=== PATIENT | female | born 1975 | race Caucasian/White ===

== ENCOUNTER → 2020-08-23 17:47 | Outpatient (BNVA) | payer BC, MEDICAID, SELFPAY | PROVIDERS: Family Provider Family Medicine; PCP Family Medicine; Visit Provider Nurse Practitioner Family | DX: K52.9 Noninfective gastroenteritis and colitis, unspecified (principal) | CPT/HCPCS: 81025 ==

== ENCOUNTER → 2021-02-02 16:26 | Outpatient (BNVA) | payer BC, MEDICAID, SELFPAY | PROVIDERS: Family Provider Family Medicine; PCP Family Medicine; Visit Provider Nurse Practitioner Family | DX: Z20.822 Contact with and (suspected) exposure to COVID-19 (principal); R43.0 Anosmia; J06.9 Acute upper respiratory infection, unspecified; Z20.828 Contact with and (suspected) exposure to other viral communicable diseases | CPT/HCPCS: 87635 ==

== ENCOUNTER 2021-08-16 11:58 | Inpatient (IN) | payer BC, MEDICAID, SELFPAY ==
--- NOTE | 2021-08-16 12:08 | ED_ITS ---
HPI - General Adult General: Chief complaint: Psychiatric Symptoms Stated complaint: EVAL 96 HR HOLD Time Seen by Provider: 08/16/21 12:00 History of Present Illness: HPI: [46]yo patient w/ hx of recent covid diagnosis c/b significant memory loss per patient BIBA for inability to take care of self, concern for suicidal ideation per affadivit. Patient denies having any recollection of the events. On arrival, the patient is AAOx3 and cooperative with my evaluation. No focal complaints of chest pain, shortness of breath, palpitations, N/V, focal GI/ complaints. Currently denies SI/HI. No complaints of hallucinations. Onset: unknown Duration: ongoing Location: home Severity: severe Associated symptoms: Deny chest pain, dyspnea, nausea, rash, palpitations or vomiting Review of Systems Const: Denies: fever(s) or chills Eyes: Denies: change in vision ENMT: Denies: mouth pain Card: Denies: chest pain or palpitations Resp: Denies: dyspnea or non-productive cough GI: Denies: abdominal pain, nausea, vomiting or diarrhea : Denies: dysuria Musc: Denies: extremity pain Skin/Breast: Denies: rash or new lesions Neuro: Denies: weakness in extremities Psych: Reports: other (Normal mood) Gera/Lymph: Denies: easy bruising PFS ED PFSH: Medical History (Updated 08/16/21 @ 12:12 by Mateo Hutton MD) COVID (~08/16/21) Social History (Updated 08/16/21 @ 12:11 by Mateo Hutton MD) Smoking and tobacco status: current every day smoker Alcohol intake: unknown Substance/Drug Use: unknown Physical Exam Const: COMMON NORMALS: alert HENMT: COMMON NORMALS: atraumatic HEAD & SCALP: atraumatic MOUTH: moist mucous membranes not abnormal Eye: COMMON NORMALS: EOMs intact bilaterally and conjunctivae normal CONJUNCTIVA: Yes conjunctivae normal Neck/C-Spine: COMMON NORMALS: full ROM and supple Resp: COMMON NORMALS: normal respiratory effort and clear to auscultation bilaterally AUSCULTATION: clear to auscultation bilaterally Cardio: COMMON NORMALS: regular rate RATE: regular rate GI: COMMON NORMALS: Soft to palpation and non-tender PALPATION: Yes Soft to palpation Extremity: COMMON NORMALS: full ROM Neuro: SENSORIUM/ORIENTATION: Yes alert MOTOR EXAM: No Abnormal motor st rength present and Other motor observations present (no focal motor deficits) Psych: COMMON NORMALS: speech normal SPEECH: Yes normal speech MOOD & AFFECT: Yes euthymic mood Course Vital Signs: Vital signs: Vital Signs Temperature 98.2 F 08/16/21 12:40 Pulse Rate 89 08/16/21 12:40 Respiratory Rate 18 08/16/21 12:40 Blood Pressure 169/78 08/16/21 12:40 Pulse Oximetry 99 08/16/21 12:40 MDM - General Adult Medical Decision Making [46]yo patient w/ hx of recent covid diagnosis presenting for depression and inability to take care of self under an affadivit. HDS, exam within normal limit Thoughts are linear and organized, and the patient has no AH/VH, or HI. Clinically the patient displays no overt toxidrome; they are well appearing, with low suspicion for toxic ingestion given history and exam. Symptoms unlikely 2/2 anemia, hypothyroidism, infection, or ICH. Workup: CBC, CMP, Lipase, salicylate/tylenol, urine drug screen Lab findings: wnl [1:05pm] On reassessment, labs and workup wnl. Patient is hemodynamically stable with no acute medical complaints. Case discussed with psychiatric provider Dr. tSephenson at [facility] psych inpatient with recommendation for admission Disposition: Psych Lab Data : 08/16/21 12:23 08/16/21 12:23 Laboratory Results WBC 9.4 10^3/uL (4.0-10.0) 08/16/21 12: RBC 3.80 10^6/uL (4.1-5.3) L 08/16/21 12:23 Hgb 12.2 g/dL (11.5-15.3) 08/16/21 12:23 Hct 36.8 % (37.0-47.0) L 08/16/21 12:23 MCV 96.8 fl (81-99) 08/16/21 12:23 MCH 32.1 pg (28.0-34.0) 08/16/21 12: MCHC 33.2 g/dL (30.0-36.0) 08/16/21 12: RDW 12.8 % (12.1-15.1) 08/16/21 12:23 Plt Count 296 10^3/cmm (130-400) 08/16/21 12:23 MPV 8.8 fL (7.4-10.4) 08/16/21 12:23 Neut % (Auto) 63.5 % 08/16/21 12: Lymph % (Auto) 24.9 % 08/16/21 12:23 [place] % (Auto) 9.7 % 08/16/21 12:23 Eos % (Auto) 0.5 % 08/16/21 12:23 Baso % (Auto) 1.1 % 08/16/21 12:23 Neut # (Auto) 5.99 10^3/uL (1.8-7.7) 08/16/21 12: Lymph # (Auto) 2.4 10^3/uL (0.8-4.8) 08/16/21 12:23 [place] # (Auto) 0.9 10^3/uL (0.2-0.9) 08/16/21 12:23 Eos # (Auto) 0.1 10^3/uL (0.0-0.8) 08/16/21 12:23 Baso # (Auto) 0.1 10^3/uL (0.0-0.1) 08/16/21 12: Nucleated RBC % (auto) 0 % 08/16/21 12: Nucleated RBCs # 0.0 /100WBC 08/16/21 12:23 Sodium 136 mmol/L (136-145) 08/16/21 12:23 Potassium 3.5 mmol/L (3.5-5.1) 08/16/21 12:23 Chloride 100 mmol/L (98-107) 08/16/21 12:23 Carbon Dioxide 25 mmol/L (22-29) 08/16/21 12:23 Anion Gap 14.5 (5-19) 08/16/21 12:23 BUN 7 mg/dL (6-20) 08/16/21 12:23 Creatinine 0.6 mg/dL (0.5-0.9) 08/16/21 12:23 GFR Calculation 106.7 mL/min (90-130) 08/16/21 12:23 Glucose 92 mg/dL (65-115) 08/16/21 12:23 Calculated Osmolality 280 mOsm/kg (285-295) L 08/16/21 12:23 Calcium 8.8 mg/dL (8.5-10.5) 08/16/21 12:23 Total Bilirubin 0.2 mg/dL (0.15-1.2) 08/16/21 12:23 AST 14 U/L (0-32) 08/16/21 12:23 ALT 15 U/L (0-33) 08/16/21 12:23 Alkaline Phosphatase 59 IU/L (35-105) 08/16/21 12:23 Total Protein 6.6 g/dL (6.6-8.7) 08/16/21 12:23 Albumin 4.1 g/dL (3.5-5.2) 08/16/21 12: Globulin 2.5 g/dL (1.3-4.6) 08/16/21 12: Lipase 17 U/L (13-60) 08/16/21 12:23 HCG, Qual Negative (Negative) 08/16/21 12:23 Salicylates < 0.3 mg/dL (3-10) L 08/16/21 12:23 Urine Opiates Screen Negative ng/mL (Negative) 08/16/21 12:30 Acetaminophen < 5.0 ug/mL (10-30) L 08/16/21 12:23 Ur Barbiturates Screen Negative ng/mL (Negative) 08/16/21 12:30 Ur Phencyclidine Scrn Negative ng/mL (Negative) 08/16/21 12:30 Ur Amphetamines Screen Negative ng/mL (Negative) 08/16/21 12:30 U Benzodiazepines Scrn Negative ng/mL (Negative) 08/16/21 12:30 Urine Cocaine Screen Negative ng/mL (Negative) 08/16/21 12:30 U Marijuana (THC) Screen Negative ng/mL (Negative) 08/16/21 12:30 Discharge Plan Discharge Patient Disposition: Admitted As Inpatient Clinical Impression: Depression, Unable to care for self Coding Level of Care Code ED [employer] 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
[2021-08-16 12:40] VITALS: BP 169/78; PULSE 89; RESP 18; TEMP 36.8; O2SAT 99; BMI 30.7
[2021-08-16 12:43] LABS: Basophils # 0.1 10^3/uL (0.0-0.1); Basophils % 1.1 %; Eosinophils # 0.1 10^3/uL (0.0-0.8); Eosinophils % 0.5 %; Hematocrit 36.8 % (37.0-47.0); Hemoglobin 12.2 g/dL (11.5-15.3); Lymphocytes # 2.4 10^3/uL (0.8-4.8); Lymphocytes % 24.9 %; Mean Corpuscular HGB Conc 33.2 g/dL (30.0-36.0); Mean Corpuscular Hemoglobin 32.1 pg (28.0-34.0); Mean Corpuscular Volume 96.8 fl (81-99); Mean Platelet Volume 8.8 fL (7.4-10.4); Monocytes # 0.9 10^3/uL (0.2-0.9); Monocytes % 9.7 %; Neutrophils # 5.99 10^3/uL (1.8-7.7); Neutrophils % 63.5 %; Nucleated Red Blood Cells % 0 %; Platelet Count 296 10^3/cmm (130-400); Red Cell Distribution Width 12.8 % (12.1-15.1); White Blood Count 9.4 10^3/uL (4.0-10.0)
[2021-08-16 12:57] LABS: Amphetamines Screen Urine Negative (Negative); Barbiturates Screen Urine Negative (Negative); Benzodiazepines Screen Urine Negative (Negative); Cocaine Screen Urine Negative (Negative); Opiate Screen Urine Negative (Negative); PCP Screen Urine Negative (Negative); THC Screen Urine Negative (Negative)
[2021-08-16 13:06] LABS: Alanine Aminotransferase 15 U/L (0-33); Albumin Level 4.1 g/dL (3.5-5.2); Alkaline Phosphatase 59 IU/L (35-105); Anion Gap 14.5 (5-19); Aspartate Amino Transferase 14 U/L (0-32); Blood Urea Nitrogen 7 mg/dL (6-20); Calcium 8.8 mg/dL (8.5-10.5); Carbon Dioxide 25 mmol/L (22-29); Chloride 100 mmol/L (98-107); Globulin 2.5 g/dL (1.3-4.6); Glomerular Filtration Rate 106.7 mL/min (90-130); Glucose 92 mg/dL (65-115); Lipase 17 U/L (13-60); Osmolality Calculated 280 mOsm/kg (285-295); Potassium 3.5 mmol/L (3.5-5.1); Sodium 136 mmol/L (136-145); Total Bilirubin 0.2 mg/dL (0.15-1.2); Total Protein 6.6 g/dL (6.6-8.7)
[2021-08-16 13:10] LABS: Acetaminophen < 5.0 ug/mL (10-30); Salicylate < 0.3 mg/dL (3-10)
[2021-08-16 13:17] LABS: HCG, Serum Qual Negative (Negative)
[2021-08-16 17:33] VITALS: BP 143/98; PULSE 91; RESP 18; TEMP 36.7; O2SAT 100
[2021-08-16] MEDS: nicotine 2 mg Gum BUCCAL ×2 (18:23→20:34)
[2021-08-16] MEDS: trazodone 100 mg Tablet PO (20:34)
[2021-08-16 21:58] VITALS: BP 133/88; PULSE 90; RESP 18; O2SAT 98
[2021-08-17] MEDS: nicotine 2 mg Gum BUCCAL ×6 (05:40→21:27)
[2021-08-17 06:00] VITALS: BP 99/66; PULSE 82; RESP 17; TEMP 36.7; O2SAT 99
[2021-08-17] MEDS: blistex lip oint 7 gm Tube 1 APPLIC TOPICAL (08:57)
[2021-08-17] MEDS: BuSPIRONE 10 mg Tablet 20 MG PO ×2 (08:57→18:41)
[2021-08-17] MEDS: montelukast sodium 10 mg Tablet PO (08:58)
[2021-08-17] MEDS: buPROPion XL (24 HR) 300 mg Tablet PO (08:58)
[2021-08-17] MEDS: acetaminophen 325 mg Tablet 650 MG PO (08:58)
--- NOTE | 2021-08-17 10:55 | W.PM.NPUH&PS ---
Providers/Chief Complaint Admitting Physician: Rohit Stephenson MD Primary Care Provider: Flory Fierro DO Chief Complaint: EVAL 96 HR HOLD HPI NPU History of Present Illness Karlene Carlisle is a 46 year old female who presented to the ED with the following report: Chief complaint: Psychiatric Symptoms Stated complaint: EVAL 96 HR HOLD Time Seen by Provider: 08/16/21 12:00 History of Present Illness:?? HPI: [46]yo patient w/ hx of recent covid diagnosis c/b significant memory loss per patient BIBA for inability to take care of self, concern for suicidal ideation per affadivit. Patient denies having any recollection of the events. On arrival, the patient is AAOx3 and cooperative with my evaluation. No focal complaints of chest pain, shortness of breath, palpitations, N/V, focal GI/ complaints. Currently denies SI/HI. No complaints of hallucinations. Onset: unknown Duration: ongoing Location: home Severity: severe Associated symptoms: Deny chest pain, dyspnea, nausea, rash, palpitations or vomiting She was admitted to the neuropsychiatric unit for definitive treatment of those issues. She presents today reporting that she has no recollection of the circumstances that have led to her to being in the hospital at this point. She denies that the history that I reviewed from her chart going back to 2020 with the adult protective caseworker is her. The adult protective caseworker Eric Madrid who had been working with her for much of last year she denies knowing. She denies my reflection of what led to the 96 hour hold reporting that she was at her home and the police came and said they had this hold for her which she reports is confusing. She reports that she did have Covid in January and has had some significant memory issues but she denies having mental health concerns that lead to treatment as is described. She reports she works at [employer], [employer] and has not had any difficulties that would lead to her needing to be hospitalized. We agreed we would do some significant research into the situation prior to proceeding. Will address additional history after we are clear there isn't an error. Meds NPU Home Medications Medication Instructions Recorded Confirmed Last Taken Type brexpiprazole 2 mg tablet (Rexulti) 2 mg PO DAILY 08/16/21 08/16/21 08/16/21 History bupropion HCl 300 mg 24 hr tablet, 300 mg PO QAM 08/16/21 08/16/21 Unknown History extended release buspirone 10 mg tablet 20 mg PO BID 08/16/21 08/16/21 Unknown History montelukast 10 mg tablet 10 mg PO QAM 08/16/21 08/16/21 08/16/21 History trazodone 50 mg tablet 100 mg PO BEDTIME 08/16/21 08/16/21 Unknown History Allergies Allergy/AdvReac Type Severity Reaction Status Date / Time No Known Allergies Allergy Verified 08/16/21 13:09 PFSH NPU PFSH: Medical History (Updated 08/17/21 @ 12:58 by Rohit Stephenson MD) COVID (~08/16/21) Social History (Updated 08/16/21 @ 12:11 by Mateo Hutton MD) Smoking and tobacco status: current every day smoker Alcohol intake: unknown Substance/Drug Use: unknown Mental Status Exam MSE Comments: This is an obese white female with appropriate dress, grooming and eye contact. No abnormal movements. Cooperative with exam in no acute distress. Speech was normal rate and volume. Mood described is pretty good, affect congruent. Thought process organized. Thought content: patient denies suicidal or homicidal ideation, there were no delusions reported or noted, she denied auditory or visual hallucinations. Attention and concentration were intact and memory appeared reliable but none were formally tested. She?s alert and oriented times three. Insight and judgment appeared fair. Vitals/I&O/Wt Last Vital Signs Temp 98.1 F 08/16/21 17:33 Pulse 90 08/16/21 21:58 Resp 18 08/16/21 21:58 BP 133/88 08/16/21 21:58 Pulse Ox 98 08/16/21 21:58 Weight last 48 hrs Weight 91.626 kg Data NPU : 08/16/21 12:23 08/16/21 12:23 A&P Assessment and plan (1) Depression: Status: Acute (2) Unable to care for self: Status: Acute (3) Involuntary commitment: Status: Acute Plan This is a 46-year-old white female who presents on a 96 hour hold denying that she?s the individual of record reporting that she does not have the history with our [facility] as described in her chart prior to a week ago. We agreed to do some further investigation to determine if her memory is the problem or there has been some mistake. 1. Continue current medication. 2. Continue every 15 minute checks for safety. 3. Encourage individual, group and milieu therapies. 4. Encourage sober living treatment after discharge at the highest level of care to which he is willing to commit. 5. We are exploring collateral information to determine if she is the individual police had expressed concerns about. Involuntary Hold Information 96 Hour Hold: 96 Hour Involuntary Admission: Yes 96 Hour Hold Ending Date: 08/20/21 96 Hour Hold Ending Time: 12:00 Attestations NPU Medical Necessity Statement*: Inpatient hospitalization is medically necessary and the clinically appropriate intervention at this time. We will monitor medication to make changes as indicated. Patient will be in the hospital for over two midnights. Likely length of stay 3 to 5 days. Coding Level of Care Code Acute Professor Of Oceanography for [facility] Diagnoses Depression F32.A Unable to care for self Z78.9 Involuntary commitment Z04.6
--- NOTE | 2021-08-17 13:01 | NPU.GN ---
[facility]Psych Unit Group Topic: Triggers, Coping Skills, Crisis Intervention Plan General Mood of Group: Karlene attended and participated in group today. She was social with all in group. Hygiene is good. She was aided with the sports writer to complete the [facility] new patient paperwork. While completing her paperwork Karlene seems very emotional and gets upset and cries easily. She is working on getting a guardian.
[2021-08-17 13:30] VITALS: BP 160/103; PULSE 105; RESP 17; TEMP 36.7; O2SAT 98
[2021-08-17 21:14] VITALS: BP 114/79; PULSE 92; RESP 16; TEMP 36.6; O2SAT 98
[2021-08-17] MEDS: trazodone 100 mg Tablet PO (21:27)
[2021-08-18 06:00] VITALS: BP 91/53; PULSE 72; RESP 20; TEMP 36.8; O2SAT 98
[2021-08-18] MEDS: acetaminophen 325 mg Tablet 650 MG PO ×2 (06:53→21:17)
[2021-08-18] MEDS: nicotine 2 mg Gum BUCCAL ×7 (06:58→21:19)
[2021-08-18] MEDS: buPROPion XL (24 HR) 300 mg Tablet PO (09:41)
[2021-08-18] MEDS: BREXPIPRAZOLE 2 MG 2 EACH PO (09:41)
[2021-08-18] MEDS: BuSPIRONE 10 mg Tablet 20 MG PO ×2 (09:42→18:44)
[2021-08-18] MEDS: montelukast sodium 10 mg Tablet PO (09:43)
[2021-08-18] MEDS: hyDROXYzine 25 mg Capsule 50 MG PO (09:46)
[2021-08-18] MEDS: OLANZapine 5 mg ODT PO ×2 (09:46→19:35)
[2021-08-18] MEDS: neomycin-poly-bacitracin oint 0.9 gm Pkt 1 APPLIC TOPICAL (12:49)
[2021-08-18 14:00] VITALS: BP 99/60; PULSE 83; RESP 18; TEMP 36.8; O2SAT 98
--- NOTE | 2021-08-18 16:23 | W.PM.NPUPNS ---
Subjective NPU Subjective: Interval history: Patient presents today continuing to have full focus on discharge today. We discussed her history with [facility] which includes a fairly thorough note from August 2005 and she chronicles history that does include depression suicidal thinking of suicide attempts. We discussed how her either intentional or accidental omission of documented history [place] to not have concerns about discharge. We agreed to work with the treatment team to connect with her significant other and consider discharge in the next 48 hours as she is consistently denied psychosis and/or lethality. Mental Status Exam MSE Comments: This is an obese white female with appropriate dress, grooming and eye contact. No abnormal movements. Cooperative with exam in mild distress about being discharged and being on a 96-hour hold and not needing the interventions suggested. Speech was normal rate and volume. Mood described is pretty good, affect congruent. Thought process organized. Thought content: patient denies suicidal or homicidal ideation, there were no delusions reported or noted, she denied auditory or visual hallucinations. Attention and concentration were intact and memory appeared reliable but none were formally tested. She?s alert and oriented times three. Insight and judgment appeared fair. Vitals/I&O/Wt Last Vital Signs Temp 98.2 F 08/18/21 14:00 Pulse 83 08/18/21 14:00 Resp 18 08/18/21 14:00 BP 99/60 08/18/21 14:00 Pulse Ox 98 08/18/21 14:00 Data NPU : 08/16/21 12:23 08/16/21 12:23 A&P Assessment and plan (1) Depression: Status: Acute (2) Involuntary commitment: Status: Acute Plan This is a 46-year-old white female who presents on a 96 hour hold denying that she?s the individual of record reporting that she does not have the history with our [facility] as described in her chart prior to a week ago. We agreed to do some further investigation to determine if her memory is the problem or there has been some mistake. 1.? Continue current medication. 2.? Continue every 15 minute checks for safety. 3.? Encourage individual, group and milieu therapies. 4.? Encourage sober living treatment after discharge at the highest level of care to which he is willing to commit. 5. There is no confusion as to whether she is to is identified in the 90 total discussions of whether or not she is an actual safety concern. Likely discharge in the next 48 hours. Involuntary Hold Information 96 Hour Hold: 96 Hour Involuntary Admission: Yes 96 Hour Hold Ending Date: 08/20/21 96 Hour Hold Ending Time: 12:00 Attestations NPU Medical Necessity Statement*: Inpatient hospitalization is medically necessary and the clinically appropriate intervention at this time. We will monitor medication to make changes as indicated. Likely length of stay 1-3 days. Coding Level of Care Code Acute Music Education Director for [facility] Fwd Diagnoses Depression F32.A Involuntary commitment Z04.6
[2021-08-18] MEDS: trazodone 100 mg Tablet PO (21:18)
[2021-08-18 22:00] VITALS: BP 97/63; PULSE 87; RESP 16; TEMP 36.6; O2SAT 97
--- NOTE | 2021-08-19 02:17 | PC.NURSE ---
1934 Zyprexa given for extreme anxiety. 2116 Tylenol 650mg given for a headache. Both medications were effective. Patient is resting quietly.
[2021-08-19] MEDS: nicotine 2 mg Gum BUCCAL ×6 (04:39→17:03)
[2021-08-19] MEDS: acetaminophen 325 mg Tablet 650 MG PO (04:39)
--- NOTE | 2021-08-19 05:35 | PC.NURSE ---
0439 Patient requested Tylenol for a headache rating it a 4 on a scale of 1-10. Tylenol 650mg po given. Med effective as the patient is asleep.
[2021-08-19 06:00] VITALS: BP 99/63; PULSE 80; RESP 18; TEMP 36.6; O2SAT 98
[2021-08-19] MEDS: BREXPIPRAZOLE 2 MG 2 EACH PO (08:53)
[2021-08-19] MEDS: BuSPIRONE 10 mg Tablet 20 MG PO ×2 (08:55→17:49)
[2021-08-19] MEDS: neomycin-poly-bacitracin oint 0.9 gm Pkt 1 APPLIC TOPICAL ×2 (08:56→17:49)
[2021-08-19] MEDS: buPROPion XL (24 HR) 300 mg Tablet PO (08:56)
[2021-08-19] MEDS: montelukast sodium 10 mg Tablet PO (08:56)
[2021-08-19] MEDS: OLANZapine 5 mg ODT PO (11:07)
[2021-08-19] MEDS: hyDROXYzine 25 mg Capsule 50 MG PO (11:09)
[2021-08-19 14:00] VITALS: BP 123/88; PULSE 97; RESP 17; TEMP 37.3; O2SAT 98
--- NOTE | 2021-08-19 14:55 | W.PM.NPUDCS ---
Diagnoses at Discharge Discharge Diagnosis (1) Depression: Status: Acute (2) Involuntary commitment: Status: Resolved Reason for Visit Reason for Visit: EVAL 96 HR HOLD Brief History: History of Present Illness Karlene Carlisle is a 46 year old female who presented to the ED with the following report: Chief complaint: P sychiatric Symptom s Stated complaint : EVAL 96 HR HOLD Time Seen by Antonio héctor: 08/16/21 12:0 0? ? History of Present Illness:??? HPI: [46]yo patien t w/ hx of recent covid diagnosis c/ b significant joe ry loss per patien t BIBA for inabili ty to take care of self, concern for suicidal ideation per affadivit. Pavan sheldon denies fan g any recollection of the events. On arrival, the hilton ent is AAOx3 and c ooperative with my evaluation. No fo gennaro complaints of chest pain, shortn ess of breath, pal pitations, N/V, fo gennaro GI/ complain ts. Currently noreen es SI/HI. No compl aints of hallucina tions. Onset: unkn own Duration: ongo ing Location: home Severity: severe Associated symptom s: Deny chest pain , dyspnea, nausea, rash, palpitation s or vomiting She was admitted to the neuropsychiatric unit for definitive treatment of those issues. She presents today reporting that she has no recollection of the circumstances that have led to her to being in the hospital at this point. She denies that the history that I reviewed from her chart going back to 2020 with the case management assistant is her. The case management assistant Eric Madrid who had been working with her for much of last year she denies knowing. She denies my reflection of what led to the 96 hour hold reporting that she was at her home and the police came and said they had this hold for her which she reports is confusing. She reports that she did have Covid in January and has had some significant memory issues but she denies having mental health concerns that lead to treatment as is described. She reports she works at [employer] and has not had any difficulties that would lead to her needing to be hospitalized. We agreed we would do some significant research into the situation prior to proceeding. Will address additional history after we are clear there isn't an error. Hospital Course Hospital Course She slowly acclimated to the individual, group and milieu therapies provided. She initially was not enigma as she denied any issues or history of any issues. There was likely some conflict with her daughter that led to the 96-hour hold that brought her to the hospital. However review of her records revealed that she has had psychiatric challenges in her past and she is a less effective than she believes she is in remembering dates historically in her life. Due to concerns raised by mother and daughter we did monitor her but she demonstrated no signs of acute lethality though her insight seemed skewed and she related this to recent Covid infection affecting her memory but at times she seemed like she could be hypomanic. She showed modest improvement and was able to contract for safety outside the hospital prior to discharge. During the hospitalization, patient had routine laboratory studies which were within normal limits except for few outliers. Additionally there was a general medical evaluation which was also within normal limits and revealed no new acute processes. Discharge Summary: At the time of discharge, she denied psychosis or lethality. Mood and anxiety were well managed. Patient endorsed a plan to avoid all drugs of abuse and follow-up with the aftercare recommendations of the treatment team. Patient was evaluated and deemed to be absent credible lethality, and and therefore did not need to be held longer on a 96-hour hold, so was discharged, though if she was interested in treatment she could benefit from interventions. Involuntary Hold Information 96 Hour Hold: 96 Hour Involuntary Admission: Yes 96 Hour Hold Ending Date: 08/20/21 96 Hour Hold Ending Time: 12:00 Mental Status Exam MSE Comments: This is an obese white female with appropriate dress, grooming and eye contact. No abnormal movements. Cooperative with exam in mild distress about being discharged and being on a 96-hour hold and not needing the interventions suggested.? Speech was normal rate and volume, but somewhat pressured. Mood described is pretty good, affect congruent. Thought process organized. Thought content: patient denies suicidal or homicidal ideation, there were no delusions reported or noted, she denied auditory or visual hallucinations. Attention and concentration were intact and memory appeared reliable but none were formally tested. She?s alert and oriented times three. Insight and judgment appeared fair. Discharge Data Studies Completed and Pending: Laboratory Results WBC 9.4 10^3/uL (4.0- 10.0) 08/16/21 12:23 RBC 3.80 10^6/uL (4.1 -5.3) L 08/16/21 12:23 Hgb 12.2 g/dL (11.5-1 5.3) 08/16/21 12:23 Hct 36.8 % (37.0-47.0 ) L 08/16/21 12:23 MCV 96.8 fl (81-99) 08/16/21 12:23 MCH 32.1 pg (28.0-34. 0) 08/16/21 12: MCHC 33.2 g/dL (30.0-3 6.0) 08/16/21 12:23 RDW 12.8 % (12.1-15.1 ) 08/16/21 12:23 Plt Count 296 10^3/cmm (130 -400) 08/16/21 12: MPV 8.8 fL (7.4-10.4) 08/16/21 12:23 Neut % (Auto) 63.5 % 08/16/21 12:23 Lymph % (Auto) 24.9 % 08/16/21 12:23 [place] % (Auto) 9.7 % 08/16/21 12:23 Eos % (Auto) 0.5 % 08/16/21 12:23 Baso % (Auto) 1.1 % 08/16/21 12:23 Neut # (Auto) 5.99 10^3/uL (1.8 -7.7) 08/16/21 12:23 Lymph # (Auto) 2.4 10^3/uL (0.8- 4.8) 08/16/21 12:23 [place] # (Auto) 0.9 10^3/uL (0.2- 0.9) 08/16/21 12:23 Eos # (Auto) 0.1 10^3/uL (0.0- 0.8) 08/16/21 12:23 Baso # (Auto) 0.1 10^3/uL (0.0- 0.1) 08/16/21 12: Nucleated RBC % (a uto) 0 % 08/16/21 12: Nucleated RBCs # 0.0 /100WBC 08/16/21 12:23 Sodium 136 mmol/L (136-1 45) 08/16/21 12:23 Potassium 3.5 mmol/L (3.5-5 .1) 08/16/21 12:23 Chloride 100 mmol/L (98-10 7) 08/16/21 12:23 Carbon Dioxide 25 mmol/L (22-29) 08/16/21 12:23 Anion Gap 14.5 (5-19) 08/16/21 12:23 BUN 7 mg/dL (6-20) 08/16/21 12:23 Creatinine 0.6 mg/dL (0.5-0. 9) 08/16/21 12:23 GFR Calculation 106.7 mL/min (90- 130) 08/16/21 12:23 Glucose 92 mg/dL (65-115) 08/16/21 12:23 Calculated Osmolal ity 280 mOsm/kg (285- 295) L 08/16/21 12:23 Calcium 8.8 mg/dL (8.5-10 .5) 08/16/21 12:23 Total Bilirubin 0.2 mg/dL (0.15-1 .2) 08/16/21 12:23 AST 14 U/L (0-32) 08/16/21 12:23 ALT 15 U/L (0-33) 08/16/21 12:23 Alkaline Phosphata se 59 IU/L (35-105) 08/16/21 12:23 Total Protein 6.6 g/dL (6.6-8.7 ) 08/16/21 12:23 Albumin 4.1 g/dL (3.5-5.2 ) 08/16/21 12:23 Globulin 2.5 g/dL (1.3-4.6 ) 08/16/21 12:23 Lipase 17 U/L (13-60) 08/16/21 12:23 HCG, Qual Negative (Negati ve) 08/16/21 12:23 Salicylates < 0.3 mg/dL (3-10 ) L 08/16/21 12:23 Urine Opiates Scre en Negative ng/mL (N egative) 08/16/21 12:30 Acetaminophen < 5.0 ug/mL (10-3 0) L 08/16/21 12:23 Ur Barbiturates Sc reen Negative ng/mL (N egative) 08/16/21 12:30 Ur Phencyclidine S crn Negative ng/mL (N egative) 08/16/21 12:30 Ur Amphetamines Sc reen Negative ng/mL (N egative) 08/16/21 12:30 U Benzodiazepines Scrn Negative ng/mL (N egative) 08/16/21 12:30 Urine Cocaine Scre en Negative ng/mL (N egative) 08/16/21 12:30 U Marijuana (THC) Screen Negative ng/mL (N egative) 08/16/21 12:30 Vitals: Last Vital Signs Temp 99.2 F 08/19/21 14:00 Pulse 97 08/19/21 14:00 Resp 17 08/19/21 14:00 BP 123/88 08/19/21 14:00 Pulse Ox 98 08/19/21 14:00 Discharge Plan Discharge Patient Disposition: Home Condition: Stable Prescriptions: Continued trazodone 50 mg tablet 100 mg PO BEDTIME 0RF buspirone 10 mg tablet 20 mg PO BID 0RF montelukast 10 mg tablet 10 mg PO QAM 0RF bupropion HCl 300 mg tablet extended release 24 hr 300 mg PO QAM 0RF Rexulti 2 mg tablet 2 mg PO DAILY 0RF Discharge Orders: Discharge Order (Routine); Ordered 08/19/21 Ordered By: Rohit Stephenson Referrals: [facility] [Outside] Flory Fierro DO [Primary Care Provider] - Discharge Diet: Regular Discharge Activity: Resume usual activity Patient Instructions: Opioid Safety Discharge Attestations NPU Time Spent in Discharge Care*: less than 30 min Specific Discharge Activities: Specific discharge activities: educating patient, discussing with rn case mgr/social workers/dc planners, documenting/other paperwork and evaluating patient/reviewing data Coding Level of Care Code Acute Chg FW DC note Diagnoses Depression F32.A Involuntary commitment Z04.6
== END 2021-08-19 19:54 | disposition home or self-care (01) | DRG 881 ==
LOC: ER 12:12 → NP 17:42
PROVIDERS: Admitting Provider Psychiatry & Neurology Psychiatry; Emergency Provider Emergency Medicine; PCP Family Medicine; Visit Provider Psychiatry & Neurology Psychiatry
DX: F32.A Depression, unspecified (principal); R41.3 Other amnesia; Z86.16 Personal history of COVID-19; F17.200 Nicotine dependence, unspecified, uncomplicated; Z78.9 Other specified health status; Z04.6 Encounter for general psychiatric examination, requested by authority; Z91.51 Personal history of suicidal behavior
CPT/HCPCS: 80053; 80306; 80307; 83690; 84703; 85025; 90471; 90686; 97150; 97165; G0378

== ENCOUNTER 2021-12-01 13:12 | Outpatient (CLI) | payer BC, MEDICAID, SELFPAY ==
--- NOTE | 2021-12-01 13:56 | PFTS_ITS ---
Date of Study:12/01/21 Date of Dictation: MECHANICS: Forced vital capacity (FVC) is normal. Forced expiratory volume in one second (FEV1) is normal. FEV1/FVC is normal. FLOW VOLUME LOOP: Hesitation with a forced expiratory maneuver. LUNG VOLUMES: Not measured DIFFUSING CAPACITY FOR CARBON MONOXIDE: Normal. INTERPRETATION: The prebronchodilator spirometry is normal. Gas exchange (DLCO) is normal. MTDD
== END 2021-12-01 13:13 | disposition home or self-care (01) ==
LOC: RT 13:14
PROVIDERS: PCP Family Medicine; Visit Provider Nurse Practitioner Family
DX: R06.02 Shortness of breath (principal); F17.210 Nicotine dependence, cigarettes, uncomplicated
CPT/HCPCS: 94010; 94729

== ENCOUNTER → 2022-03-04 10:46 | Outpatient (BNVA) | payer BC, MEDICAID, SELFPAY | PROVIDERS: PCP Family Medicine; Visit Provider Registered Nurse Neonatal Intensive Care | DX: R50.9 Fever, unspecified (principal); B34.9 Viral infection, unspecified | CPT/HCPCS: 87426 ==

== ENCOUNTER 2022-03-13 01:26 | Emergency (ER) | payer BC, MEDICAID, SELFPAY ==
[2022-03-13 01:27] VITALS: BP 146/103; PULSE 97; RESP 20; TEMP 36.6; O2SAT 98; BMI 34.4
[2022-03-13 01:51] LABS: Basophils # 0.1 10^3/uL (0.0-0.1); Basophils % 1.1 %; Eosinophils # 0.2 10^3/uL (0.0-0.8); Eosinophils % 2.3 %; Hematocrit 40.7 % (37.0-47.0); Hemoglobin 13.6 g/dL (11.5-15.3); Lymphocytes # 3.2 10^3/uL (0.8-4.8); Lymphocytes % 33.5 %; Mean Corpuscular HGB Conc 33.4 g/dL (30.0-36.0); Mean Corpuscular Hemoglobin 32.1 pg (28.0-34.0); Mean Platelet Volume 9.3 fL (7.4-10.4); Monocytes # 0.8 10^3/uL (0.2-0.9); Monocytes % 8.7 %; Neutrophils # 5.18 10^3/uL (1.8-7.7); Neutrophils % 54.1 %; Nucleated Red Blood Cells % 0 %; Platelet Count 313 10^3/cmm (130-400); Red Blood Count 4.24 10^6/uL (4.1-5.3); Red Cell Distribution Width 12.9 % (12.1-15.1); White Blood Count 9.6 10^3/uL (4.0-10.0)
[2022-03-13] MEDS: midazolam 1 mg/mL INJ 2 mL 2 MG IM (01:56)
[2022-03-13] MEDS: ziprasidone 20 mg/mL SDV IM (01:56)
[2022-03-13 02:02] LABS: Alanine Aminotransferase 22 U/L (0-33); Albumin Level 4.5 g/dL (3.5-5.2); Alcohol Level 173 mg/dL (0-10); Alkaline Phosphatase 70 U/L (35-105); Anion Gap 15.8 (5-19); Aspartate Amino Transferase 13 U/L (0-32); Blood Urea Nitrogen 9 mg/dL (6-20); Carbon Dioxide 25 mmol/L (22-29); Chloride 105 mmol/L (98-107); Globulin 2.4 g/dL (1.3-4.6); Glomerular Filtration Rate 106.3 mL/min (90-130); Glucose 102 mg/dL (65-115); Osmolality Calculated 293 mOsm/kg (285-295); Potassium 3.8 mmol/L (3.5-5.1); Sodium 142 mmol/L (136-145); Total Bilirubin 0.2 mg/dL (0.15-1.2); Total Protein 6.9 g/dL (6.6-8.7)
[2022-03-13 02:05] LABS: Acetaminophen < 5.0 ug/mL (10-30); Salicylate < 0.3 mg/dL (3-10)
[2022-03-13 04:17] VITALS: PULSE 87; RESP 17
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
--- NOTE | 2022-03-13 07:17 | PC.NURSE ---
pt resting in bed, appears asleep. respirations appear even and unlabored.
--- NOTE | 2022-03-13 08:52 | PC.NURSE ---
pt awake, staff assisted pt with using a phone to call a ride
[2022-03-13 09:00] VITALS: BP 106/66; PULSE 72; TEMP 36.4; O2SAT 99
--- NOTE | 2022-03-13 09:19 | PC.NURSE ---
pt awake, ambulatory to restroom. Denies nausea or vomiting, denies SI/HI
[2022-03-13 09:27] VITALS: BP 102/73; PULSE 83; RESP 18; O2SAT 97
== END 2022-03-13 09:28 | disposition home or self-care (01) ==
PROVIDERS: Emergency Provider Emergency Medicine; PCP Family Medicine
DX: F32.A Depression, unspecified (principal); F10.129 Alcohol abuse with intoxication, unspecified; Y90.6 Blood alcohol level of 120-199 mg/100 ml; F17.210 Nicotine dependence, cigarettes, uncomplicated
CPT/HCPCS: 80053; 80307; 85025; 96372; 99285; J2250; J3486

== ENCOUNTER 2022-04-04 10:20 | Emergency (ER) | payer BC, MEDICAID, SELFPAY ==
[2022-04-04 10:47] VITALS: BP 118/81; PULSE 73; RESP 18; TEMP 36.4; O2SAT 100; BMI 32.8
[2022-04-04 13:24] LABS: Basophils # 0.1 10^3/uL (0.0-0.1); Eosinophils # 0.1 10^3/uL (0.0-0.8); Eosinophils % 1.6 %; Hematocrit 42.4 % (37.0-47.0); Hemoglobin 13.7 g/dL (11.5-15.3); Lymphocytes # 2.1 10^3/uL (0.8-4.8); Lymphocytes % 26.2 %; Mean Corpuscular HGB Conc 32.3 g/dL (30.0-36.0); Mean Corpuscular Hemoglobin 32.2 pg (28.0-34.0); Mean Corpuscular Volume 99.8 fl (81-99); Mean Platelet Volume 9.5 fL (7.4-10.4); Monocytes # 0.5 10^3/uL (0.2-0.9); Neutrophils # 5.15 10^3/uL (1.8-7.7); Neutrophils % 64.9 %; Nucleated Red Blood Cells % 0 %; Platelet Count 302 10^3/cmm (130-400); Red Blood Count 4.25 10^6/uL (4.1-5.3); Red Cell Distribution Width 13.2 % (12.1-15.1); White Blood Count 7.9 10^3/uL (4.0-10.0)
[2022-04-04 13:37] LABS: HCG, Serum Qual Negative (Negative)
[2022-04-04 13:38] LABS: Add Urine Culture? No; Add Urine Microscopic? YES; Bacteria Urine TRACE /hpf; Bilirubin Urine Neg (Negative); Blood Urine 3+ (Negative); Glucose Urine UA Norm (Normal); Ketones Urine Negative (Negative); Leukocyte Esterase Urine Negative (Negative); Nitrate Urine Negative (Negative); Protein Urine Neg (Negative); Specific Gravity, Urine 1.005 (1.005-1.030); Squamous Epithelial Cell Urine 0-4 /hpf (0-5); Urine Appearance Clear (CLEAR); Urine Color Yellow (Yellow); Urobilinogen Urine Norm (Negative); WBC Urine 0-4 /hpf (0-5); pH Urine 5 (5-7)
[2022-04-04 13:45] LABS: Alanine Aminotransferase 15 U/L (0-33); Albumin Level 4.3 g/dL (3.5-5.2); Alkaline Phosphatase 68 U/L (35-105); Anion Gap 13.2 (5-19); Aspartate Amino Transferase 14 U/L (0-32); Blood Urea Nitrogen 14 mg/dL (6-20); Carbon Dioxide 29 mmol/L (22-29); Chloride 97 mmol/L (98-107); Creatinine Clr Calc Pharmacy 134.3985; Globulin 3.2 g/dL (1.3-4.6); Glomerular Filtration Rate 106.3 mL/min (90-130); Glucose 113 mg/dL (65-115); Lipase 19 U/L (13-60); Osmolality Calculated 281 mOsm/kg (285-295); Potassium 4.2 mmol/L (3.5-5.1); Sodium 135 mmol/L (136-145); Total Bilirubin 0.2 mg/dL (0.15-1.2); Total Protein 7.5 g/dL (6.6-8.7)
--- NOTE | 2022-04-04 14:31 | US_ITS ---
WS: [id number] TRANSVAGINAL PELVIC ULTRASOUND HISTORY: vaginal bleeding, postmenopausal. COMPARISON: 07/02/2012 Uterus: 8.6 cm x 5.1 cm x 4.3 cm. Normal size anteverted uterus. Mild heterogeneity but no fibroid id entified. Endometrium: 0.6 cm. Top normal size endometrium for postmenopausal patient. No mass or increased vas cularity. No fluid along the endometrial canal. Right ovary: Not identified. No adnexal mass. Left ovary: 2.9 cm x 3.0 cm x 2.5 cm. Normal size ovary contains a LEFT cyst measuring 2.0 x 1.8 x 1. 8 cm. No solid mass. Normal vascularity. No free fluid. US/US transvaginal [id number] IMPRESSION: 1. Top normal size endometrium. No mass or fluid along the endometrial canal. 2. RIGHT ovary is not identified. 3. Mildly heterogeneous uterus. No fibroid identified.
--- NOTE | 2022-04-04 14:40 | W.ED.FEMALGU ---
HPI - Female Genitourinary General: Chief complaint: Vaginal Bleeding Stated complaint: Vagina Pain and Bleeding Time Seen by Provider: 04/04/22 14:25 Source: patient Mode of arrival: ambulatory Limitations: no limitations History of Present Illness: 47-year-old female states that she has not had a menstruation in the last year states that over the last week she has had some bleeding. States has had some lower slight pelvic pain as well. She states that she has not had any heavy bleeding denies passing any clots she denies any vomiting or fever. Associated symptoms: Deny abdominal pain, headache(s) or nausea Review of Systems Const: Denies: fever(s), chills, body aches or change in appetite Eyes: Denies: blurry vision or eye discomfort ENMT: Denies: throat pain or dental pain Card: Denies: chest pain Resp: Denies: dyspnea GI: Denies: abdominal pain, nausea, vomiting or diarrhea : Reports: vaginal bleeding; Denies: dysuria Musc: Denies: neck pain or back pain Skin/Breast: Denies: rash Neuro: Denies: headache(s) Psych: Denies: depression Gera/Lymph: Denies: easy bruising All/Imm: Denies: urticaria PFSH ED PFSH: Medical History COVID (~08/16/21) Social History Smoking and tobacco status: current every day smoker Alcohol intake: unknown Physical Exam Const: COMMON NORMALS: no acute distress, patient oriented x3 and healthy appearing HENMT: COMMON NORMALS: normocephalic and atraumatic HEAD & SCALP: normocephalic and atraumatic Eye: COMMON NORMALS: Equal, round and reactive pupils present and EOMs intact bilaterally PUPIL: Yes Equal, round and reactive pupils present Neck/C-Spine: COMMON NORMALS: full ROM and supple Chest: COMMONS NORMALS: normal inspection of the chest and normal palpation of entire chest wall Resp: COMMON NORMALS: normal respiratory effort, No retractions, No use of accessory muscles and clear to auscultation bilaterally AUSCULTATION: clear to auscultation bilaterally Cardio: COMMON NORMALS: regular rate, regular rhythm and No murmurs present (Cardio) RATE: regular rate RHYTHM: regular rhythm GI: COMMON NORMALS: Normal to inspection, nondistended, normoactive bowel sounds present, Soft to palpation, non-tender and no masses PALPATION: Yes Soft to palpation Extremity: COMMON NORMALS: normal to inspection and full ROM Neuro: COMMON NORMALS: patient oriented x3, moves all extremities and no focal motor deficits Psych: COMMON NORMALS: mental status grossly normal, Normal thought process present and cooperative THOUGHT PROCESS: Normal thought process present Skin: COMMON NORMALS: no rashes or lesions noted and no wounds GENERAL SKIN EXAM: no rashes or lesions noted Course Vital Signs: Vital signs: Vital Signs Temperature 97.5 F L 04/04/22 10:47 Pulse Rate 81 04/04/22 14:45 Respiratory Rate 16 04/04/22 14:45 Blood Pressure 131/69 04/04/22 14:45 Pulse Oximetry 100 04/04/22 14:45 Oxygen Delivery Me thod 04/04/22 14:45 MDM - Female Medical Decision Making Patient presents here with vaginal bleeding likely of breakthrough bleeding ultrasound showed no signs of fibroids she is well-appearing here blood work is normal does have an ovarian cyst as well will place on Naprosyn she is to follow-up with W[facility] TREATMENT SPECIALIST return if worsening she understands agrees to plan. Lab Data : 04/04/22 13:13 04/04/22 13:13 Radiology Impressions Transvaginal US 04/04/22 14:31 IMPRESSION: 1. Top normal size endometrium. No mass or fluid along the endometrial canal. 2. RIGHT ovary is not identified. 3. Mildly heterogeneous uterus. No fibroid identified. Laboratory Results WBC 7.9 10^3/uL (4.0-10.0) 04/04/22 13:13 RBC 4.25 10^6/uL (4.1-5.3) 04/04/22 13:13 Hgb 13.7 g/dL (11.5-15.3) 04/04/22 13:13 Hct 42.4 % (37.0-47.0) 04/04/22 13:13 MCV 99.8 fl (81-99) H 04/04/22 13:13 MCH 32.2 pg (28.0-34.0) 04/04/22 13:13 MCHC 32.3 g/dL (30.0-36.0) 04/04/22 13:13 RDW 13.2 % (12.1-15.1) 04/04/22 13:13 Plt Count 302 10^3/cmm (130-400) 04/04/22 13:13 MPV 9.5 fL (7.4-10.4) 04/04/22 13:13 Neut % (Auto) 64.9 % 04/04/22 13:13 Lymph % (Auto) 26.2 % 04/04/22 13:13 [place] % (Auto) 6.0 % 04/04/22 13:13 Eos % (Auto) 1.6 % 04/04/22 13:13 Baso % (Auto) 1.0 % 04/04/22 13:13 Neut # (Auto) 5.15 10^3/uL (1.8-7.7) 04/04/22 13:13 Lymph # (Auto) 2.1 10^3/uL (0.8-4.8) 04/04/22 13:13 [place] # (Auto) 0.5 10^3/uL (0.2-0.9) 04/04/22 13:13 Eos # (Auto) 0.1 10^3/uL (0.0-0.8) 04/04/22 13:13 Baso # (Auto) 0.1 10^3/uL (0.0-0.1) 04/04/22 13:13 Nucleated RBC % (auto) 0 % 04/04/22 13:13 Nucleated RBCs # 0.0 /100WBC 04/04/22 13:13 Sodium 135 mmol/L (136-145) L 04/04/22 13:13 Potassium 4.2 mmol/L (3.5-5.1) 04/04/22 13:13 Chloride 97 mmol/L (98-107) L 04/04/22 13:13 Carbon Dioxide 29 mmol/L (22-29) 04/04/22 13:13 Anion Gap 13.2 (5-19) 04/04/22 13:13 BUN 14 mg/dL (6-20) 04/04/22 13:13 Creatinine 0.6 mg/dL (0.5-0.9) 04/04/22 13:13 GFR Calculation 106.3 mL/min (90-130) 04/04/22 13:13 Glucose 113 mg/dL (65-115) 04/04/22 13:13 Calculated Osmolality 281 mOsm/kg (285-295) L 04/04/22 13:13 Calcium 9.0 mg/dL (8.5-10.5) 04/04/22 13:13 Total Bilirubin 0.2 mg/dL (0.15-1.2) 04/04/22 13:13 AST 14 U/L (0-32) 04/04/22 13:13 ALT 15 U/L (0-33) 04/04/22 13:13 Alkaline Phosphatase 68 U/L (35-105) 04/04/22 13:13 Total Protein 7.5 g/dL (6.6-8.7) 04/04/22 13:13 Albumin 4.3 g/dL (3.5-5.2) 04/04/22 13:13 Globulin 3.2 g/dL (1.3-4.6) 04/04/22 13:13 Lipase 19 U/L (13-60) 04/04/22 13:13 HCG, Qual Negative (Negative) 04/04/22 13:13 Urine Color Yellow (Yellow) 04/04/22 13:20 Urine Appearance Clear (CLEAR) 04/04/22 13:20 Urine pH 5 (5-7) 04/04/22 13:20 Ur Specific [place] 1.005 (1.005-1.030) 04/04/22 13:20 Urine Protein Neg (Negative) 04/04/22 13:20 Urine Glucose (UA) Norm (Normal) 04/04/22 13:20 Urine Ketones Negative (Negative) 04/04/22 13:20 Urine Blood 3+ (Negative) H 04/04/22 13:20 Urine Nitrate Negative (Negative) 04/04/22 13:20 Urine Bilirubin Neg (Negative) 04/04/22 13:20 Urine Urobilinogen Norm mg/dL (Negative) 04/04/22 13:20 Ur Leukocyte Esterase Negative (Negative) 04/04/22 13:20 Urine RBC 5-10 /hpf (0-2) H 04/04/22 13:20 Urine WBC 0-4 /hpf (0-5) H 04/04/22 13:20 Ur Squamous Epith Cells 0-4 /hpf (0-5) H 04/04/22 13:20 Amorphous Sediment Not Reportable 04/04/22 13:20 Urine Bacteria Trace /hpf (NONE) 04/04/22 13:20 Discharge Plan Discharge Patient Disposition: Home Clinical Impression: Dysfunctional uterine bleeding, Ovarian cyst Condition: Stable Prescriptions: New Naprosyn 500 mg tablet 500 mg PO BID PRN (Reason: pain) Qty: 20 0RF No Action trazodone 50 mg tablet 100 mg PO BEDTIME buspirone 10 mg tablet 20 mg PO BID montelukast 10 mg tablet 10 mg PO QAM bupropion HCl 300 mg tablet extended release 24 hr 300 mg PO QAM Rexulti 2 mg tablet 2 mg PO DAILY Discharge Orders: Discharge ED (Routine); Ordered 04/04/22 Ordered By: Mariposa Garland Referrals: Jesse Piedra MD [Physician] - 1-3 days Flory Fierro DO [Primary Care Provider] - Discharge Diet: Advance as tolerated Discharge Activity: Resume usual activity Patient Instructions: Abnormal (Dysfunctional) Uterine Bleeding (ED) Coding Level of Care Code ED Lead Manufacturing Engineering Tech for Chg Fwd Exam Comprehensive
[2022-04-04 14:45] VITALS: BP 131/69; PULSE 81; RESP 16; O2SAT 100
[2022-04-04 15:00] VITALS: BP 131/69; PULSE 81; RESP 18; O2SAT 99
[2022-04-04] MEDS: ketorolac 30 mg/mL INJ IM (15:27)
--- NOTE | 2022-04-05 10:42 | DCPLANNER ---
Addendum entered by Pati Barber 07/07/22 10:10: Patient had a follow up appointment scheduled with [facility] -patient did attend appointment Addendum entered by Pati Barber 04/06/22 09:52: Patient has a follow up appointment scheduled for Friday, May 27, 2022 at 8:[address] Piedra at [facility]. Clinic will call patient with appointment information. Original Note: physiotherapy practice manager had message to schedule a follow up appointment for patient with [facility]. physiotherapy practice manager sent patients information to the front office staff at [facility]. Patients information will be printed and reviewed. Clinic will call patient with appointment information.
== END 2022-04-04 16:00 | disposition home or self-care (01) ==
PROVIDERS: Emergency Provider Emergency Medicine; PCP Family Medicine
DX: N93.8 Other specified abnormal uterine and vaginal bleeding (principal); N83.209 Unspecified ovarian cyst, unspecified side; F17.210 Nicotine dependence, cigarettes, uncomplicated
CPT/HCPCS: 76830; 80053; 81001; 83690; 84703; 85025; 96372; 99285; J1885

== ENCOUNTER → 2022-05-27 08:53 | Outpatient (BNVA) | payer BC, MEDICAID, SELFPAY | PROVIDERS: PCP Family Medicine; Visit Provider Obstetrics & Gynecology | DX: N93.9 Abnormal uterine and vaginal bleeding, unspecified (principal) | CPT/HCPCS: 83001; 84146; 84443; 84702 ==

== ENCOUNTER → 2022-07-04 13:09 | Outpatient (BNVA) | payer BC, MEDICAID, SELFPAY | PROVIDERS: PCP Family Medicine; Visit Provider Obstetrics & Gynecology | DX: N95.0 Postmenopausal bleeding (principal) | CPT/HCPCS: 81025; 88305 ==

== ENCOUNTER → 2023-01-04 12:36 | Outpatient (BNVA) | payer BC, MEDICAID, SELFPAY | PROVIDERS: PCP Family Medicine; Visit Provider Nurse Practitioner Family | DX: R39.9 Unspecified symptoms and signs involving the genitourinary system (principal); Z20.2 Contact with and (suspected) exposure to infections with a predominantly sexual mode of transmission | CPT/HCPCS: 81000; 87491; 87591 ==

== ENCOUNTER → 2023-04-30 15:21 | Outpatient (BNVA) | payer BC, MEDICAID, SELFPAY | PROVIDERS: PCP Family Medicine; Visit Provider Family Medicine | DX: R11.2 Nausea with vomiting, unspecified (principal); J01.90 Acute sinusitis, unspecified; J06.9 Acute upper respiratory infection, unspecified; Z20.822 Contact with and (suspected) exposure to COVID-19 | CPT/HCPCS: 87400; 87426 ==

== ENCOUNTER → 2023-07-05 09:06 | Outpatient (BNVA) | payer BC, MEDICAID, SELFPAY | PROVIDERS: PCP Family Medicine; Visit Provider Nurse Practitioner Family | DX: R05.9 Cough, unspecified (principal) | CPT/HCPCS: 87426 ==

== ENCOUNTER 2025-04-12 22:31 | Emergency (ER) | payer BC, MEDICAID, SELFPAY ==
[2025-04-12 22:33] VITALS: BP 119/76; PULSE 87; RESP 16; TEMP 36.6; O2SAT 98
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
[2025-04-12 22:36] VITALS: BP 119/76; PULSE 87; RESP 16; TEMP 36.6; O2SAT 98
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
--- OUTSIDE RECORDS SUMMARY | 2025-04-12 22:46 | XMS_ITS | Encounter Summary ---
Author Organization 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
--- OUTSIDE RECORDS SUMMARY | 2025-04-12 22:47 | XMS_ITS | Data Portability ---
Author Organization [facility] Address [facility] [address] Care Team Providers Care Physical Therapist Technician Name Role Phone CHRISTELLE MANCUSO Primary Care Provider Assessment No assessment recorded. Plan of Treatment Reminders Order Date Submit Date Provider Last Modified By Organization Details Last Modified Time Details Appointments None record ed. Lab None record ed. Referral None record ed. Procedures None record ed. Surgeries None record ed. Imaging None record ed. Medication Orders None record ed. Patient TargetsNo targets recorded. Patient InstructionsNo instructions recorded. Reason for Referral None Reported. Problems Name Problem SNOMED Code Status Onset Date Resolution Date Notes Provider Name and Address Organization Details Recorded Time Depressive disorder 88305936 Active 2016 Depressi on; 10/22/19 17 11:26AM by Shila Edmonds LPN, Office Visit; Promoted ; acuity set as *; Not Available [facility] 3 03:10:37 Anxiety disorder 364879051 Active 2016 Anxiety Disorder ; 10/22/19 17 11:27AM by Shila Edmonds LPN, Office Visit; Promoted ; acuity set as *; Not Available [facility] 3 03:10:38 Problem Notes None recorded. Medical Equipment None Reported. Medications Name Sig Start Date Stop Date Status Note LastModified by Organization Details LastModified Time prednison e 10 mg tablet daily 08/13 completed taper dose; 0; Recorded 10/22/19 17 11:33AM by Shila Edmonds LPN, Office Visit; Not Available Not Available Not Available trazodone 50 mg tablet TAKE TWO TABLETS BY MOUTH AT BEDTIME active Not Available Not Available No t Available Concerta 18 mg tablet,ex tended release TAKE ONE TABLET BY MOUTH DAILY in THE morning. Max daily AMOUNT 18 MG. 08/13 completed Not Available Not Available Not Available cetirizin e 10 mg tablet daily active 0; Recorded 10/22/19 17 11:32AM by Shila Edmonds LPN, Office Visit; Not Available Not Available Not Available methylphe nidate 10 mg tablet TAKE ONE TABLET BY MOUTH TWICE DAILY. max DAILY AMOUNT of TWO TABLETS 08/13 completed Not Available Not Available Not Available prednison e 20 mg tablet TAKE ONE TABLET BY MOUTH DAILY. 08/13 completed Not Available Not Available Not Available tramadol 50 mg tablet every 4 hours as needed 08/13 completed 0; Recorded 10/22/19 17 11:32AM by Shila Edmonds LPN, Office Visit; Not Available Not Available Not Available alprazola m 0.25 mg tablet TAKE ONE TABLET BY MOUTH nightly NEEDED FOR ANXIETY active Not Available Not Available No t Available citalopra m 20 mg tablet daily active 0; Recorded 10/22/19 17 11:31AM by Shila Edmonds LPN, Office Visit; Not Available Not Available Not Available omeprazol e 20 mg capsule,d elayed release TAKE ONE CAPSULE BY MOUTH DAILY active Not Available Not Available No t Available monteluka st 10 mg tablet TAKE ONE TABLET BY MOUTH AT BEDTIME active Not Available Not Available No t Available ondansetr on 4 mg disintegr ating tablet dissolve one tablet on tongue and swallow with saliva EVERY 6 HOURS NEEDED FOR nausea AND emesis 08/13 completed Not Available Not Available Not Available doxycycli ne hyclate 100 mg tablet TAKE ONE TABLET BY MOUTH TWICE DAILY FOR SEVEN DAYS. 08/13 completed Not Available Not Available Not Available Ventolin HFA 90 mcg/actua tion aerosol inhaler Inhale TWO puffs BY MOUTH EVERY SIX hours NEEDED FOR SHORTNES S OF BREATH OR wheezing . active Not Available Not Available No t Available Concerta 27 mg tablet,ex tended release TAKE ONE TABLET BY MOUTH DAILY in THE morning. Max daily AMOUNT 27 MG. 08/13 completed Not Available Not Available Not Available atomoxeti ne 18 mg capsule TAKE ONE CAPSULE BY MOUTH DAILY. 08/13 completed Not Available Not Available Not Available bupropion HCl XL 300 mg 24 hr tablet, extended release TAKE ONE TABLET BY MOUTH DAILY in THE morning 08/13 completed Not Available Not Available Not Available alprazola m three times daily as needed 08/13 completed 0; Recorded 10/22/19 17 11:31AM by Shila Edmonds LPN, Office Visit; Not Available Not Available Not Available Vyvanse 30 mg capsule TAKE ONE CAPSULE BY MOUTH DAILY EVERY MORNING. Max daily AMOUNT 30 MG. active Not Available Not Available No t Available Vyvanse 20 mg capsule TAKE ONE CAPSULE BY MOUTH DAILY in THE morning. Max daily AMOUNT 20 MG. 08/13 completed Not Available Not Available Not Available Rexulti 1 mg tablet take 1 tablet by mouth once daily 08/13 completed Not Available Not Available Not Available Rexulti 2 mg tablet take 1 tablet by mouth once daily active Not Available Not Available No t Available Vitals Date Recorded Body height Body mass index (BMI) Body weight Oxygen saturation Oxygen saturation in Arterial blood by Pulse oximetry Heart rate Respiratory rate Body temperature Systolic And Diastolic Provider Name and Address Organization Details Last Updated DateTime 170.18 cm 36.3 kg/m2 787900. 43 g 98 % 98 % 96 /min 18 /min 98.2 [degF] 138/80 mm[Hg] [facility] 16:18:41 Social History None recorded. Functional Status None recorded. Mental Status None recorded. Family History Nothing Reported Notes:Maternal Aunt: Cancer; Breast Mother: Diabetes Mellitus, Hypertension Non-Contributory Family History Medical History No medical history recorded. Gynecological HistoryNo gynecological history recorded. Obstetrics History GPAL:G 0 P 0 0 0 0 Immunizations Vaccine Type Date Status Note Provider Nam e and Address Organization Details Recorded Time Influenza, split virus, trivalent, preservative 0 completed Not Available [facility] 02/11/2023 02:32:54 Past Encounters Encounter ID Performer Location Encounter Start Date Encounter Closed Date Diagnosis/Indication Diagnosis SNOMED-CT Code Diagnosis ICD10 Code Diagnosis IMO Codes Diagnosis Note [id number] CANDACE HANCOCK [facility] ([facility]) [address] [place] [phone] 08/13/2024 15:35:48 08/13/2024 16:28:27 Health Concerns Section Related Observation LastModified by Organization Detai ls LastModified Time None Recorded Concern Status LastModified by Organization Details LastModified Time None Recorded Advance Directives Directive None Recorded Payers Insurance Date Sequence Insurance Name Policy Number Policy Garay Covered Member ID Garay Member ID Guarantor Name 08/13/2024 1 [employer] [place]AC[place] - [place]MO) [id number] Karlene Carlisle [id number] Karlene Carlisle 08/13/2024 1 *SELF PAY* ashley Carlisle Notes Date Note Type Note Provider Name and Address Organization Details Recorded Time 08/13/2024 text/html DizzinessReporte d by Patient walk in patientpatient is here today for dizziness and light headedness that happened over a week ago and it she has not followed up with her pcp Dr Vadim dhaliwal, [facility] 08/13/2024 16:23:48 OBGyn Episode No OBEpisode recorded.
--- OUTSIDE RECORDS SUMMARY | 2025-04-12 22:47 | XMS_ITS | Clinical Summary ---
Author Organization [facility] Address [address] [place] [address] Care Team Providers Care Cardroom Attendant Name Role Phone Flory Fierro Joel NEELY Primary Care Provider Allergies No known active allergies Medications ondansetron (ZOFRAN ODT) 4 mg Tablet, Rapid Dissolve dissolve one tablet on tongue and swallow with saliva EVERY 6 HOURS NEEDED FOR nausea AND emesis 30 Tablet 1 12/12/19 24 Active buPROPion HCL (WELLBUTRIN XL) 300 mg Extended Release 24 hour tabletIndicatio ns:Recurrent major depressive disorder, in full remission TAKE ONE TABLET BY MOUTH DAILY in THE morning 90 Tablet 3 08/29/19 25 Active montelukast (SINGULAIR) 10 mg tabletIndicatio ns:Environmenta l allergies TAKE ONE TABLET BY MOUTH AT BEDTIME 90 Tablet 08/29/19 25 Active traZODone (DESYREL) 50 mg tabletIndicatio ns:Primary insomnia TAKE TWO TABLETS BY MOUTH AT BEDTIME 180 Tablet 3 08/29/19 25 Active brexpiprazole (REXULTI) 1 mg TabletIndicatio ns:Moderate episode of recurrent major depressive disorder (CMS/HCC) Take 1 Tablet (1 mg) by mouth daily. 90 Tablet 3 11/05/19 25 Active ketoconazole (NIZORAL) 2 % CreamIndication s:Scalp ringworm Apply to affected area daily. 30 Gram 2 11/07/19 25 Active lidocaine (lidocaine viscous 2%) 2 % SolutionIndicat ions:Injury of tongue, initial encounter 5 mL by Mouth/Throat route every 6 hours as needed for Pain. 150 mL 1 11/07/19 25 Active Ventolin HFA 90 mcg/actuation inhalerIndicati ons:Environment al allergies,Short ness of breath Inhale TWO puffs BY MOUTH EVERY SIX hours NEEDED FOR SHORTNESS OF BREATH OR wheezing. 18 Gram 3 12/16/19 25 Active ALPRAZolam (XANAX) 0.25 mg tabletIndicatio ns:Generalized anxiety disorder TAKE ONE TABLET BY MOUTH AT NIGHT NEEDED FOR ANXIETY. Needs appointment for further refills. 30 Tablet 02/24/20 25 Active omeprazole (PriLOSEC) 20 mg Capsule, Delayed Release(E.C.)In dications:Gastr oesophageal reflux disease without esophagitis TAKE ONE CAPSULE BY MOUTH DAILY. 100 Capsule 3 03/24/20 25 Active lisdexamfetamin e (Vyvanse) 30 mg capsuleIndicati ons:Adult ADHD Take 1 Capsule (30 mg) by mouth daily in the morning. Needs appointment for further refills Max Daily Amount: 30 mg 30 Capsule 03/31/20 25 Active omeprazole (PriLOSEC) 20 mg Capsule, Delayed Release(E.C.)In dications:Gastr oesophageal reflux disease without esophagitis Take 1 Capsule (20 mg) by mouth daily. 90 Capsule 4 03/21/20 24 025 Discontinued lisdexamfetamin e (Vyvanse) 30 mg capsuleIndicati ons:Adult ADHD Take 1 Capsule (30 mg) by mouth daily in the morning. Needs appointment for further refills. Max Daily Amount: 30 mg 30 Capsule 02/24/20 25 025 Discontinued Active Problems Problem Noted Date Diagnosed Date Adult ADHD 09/03/2023 Gastroesophageal reflux disease without esophagi tis 09/03/2023 Environmental allergies 09/03/2023 COPD with acute exacerbation 09/03/2023 Cigarette dependence 09/03/2023 Generalized anxiety disorder 11/19/2019 Primary insomnia 11/19/2019 Recurrent major depressive disorder, in full rem ission 11/19/2019 Encounters Date Type Department Care Team Description 03/31/2025 [facility] [address] [facility] [place] [address] Flory Fierro, Adult ADHD 03/24/2025 [facility] [address] [place] [address] Flory Fierro, Gastroesophageal reflux disease without esophagitis 03/18/2025 External Device Data [facility] Provider, Abstract 03/18/2025 External Device Data [facility] Provider, Abstract 03/18/2025 External Device Data [facility] Provider, Abstract 03/11/2025 Telephone [place] [address] [place] [address] Flory Fierro, letter 03/04/2025 External Device Data [facility] Provider, Abstract 02/21/2025 [facility] [address] [place] [address] Flory Fierro, Generalized anxiety disorder; Adult ADHD 01/29/2025 External Device Data [facility] Provider, Abstract 01/29/2025 External Device Data [facility] Provider, Abstract 01/29/2025 External Device Data [facility] [place] Provider, Abstract 01/29/2025 External Device Data [facility] Provider, Abstract 01/28/2025 External Device Data [facility] Provider, Abstract 01/23/2025 [facility] [address] [place] [address] Flory Fierro, DO Adult ADHD from Last 3 Months Immunizations Immunization Administration Dates Next Due (ADACEL/BOOSTRIX)(10 YR UP) TDAP VACCINE, 0.5ML, IM 06/22/2022,01/15/2013 (PFIZER MAGALYS)(5-11 YRS PRIMA RY SERIES) COVID-19 VACCINE - EMERGENCY USE AUTHORIZATION, MRNA, MAGALYS(PF) 10 MCG/0.2 ML IM SUSP 09/13/2021 (PFIZER)(12 YR UP) COVID-19 VACCINE - EMERGENCY USE AUTHORIZATION, MRNA, [id number](PF) 30 MCG/0.3 ML IM SUSP 02/18/2022 Influenza Seasonal Unspecified Formulation IM Family History Medical History Relation Name Comments Diabetes Maternal Grandfather Diabetes Mother No Known Problems Sister 1 Relation Name Status Comments Father Other Maternal Grandfather Mother Alive Sister 1 Alive Sister 2 Social History Tobacco Use Types Packs/Day Years Used Date Smoking Tobacco: Every Day Cigarettes Passive Smoke Exposure: Past Smokeless Tobacco: Never Tobacco Cessation:Ready to Q uit: Not Asked; Counseling Given: Yes Alcohol Use Standard Drinks/Week Comments Never 0 (1 standard drink = 0.6 oz pur e alcohol) Comments No Sex and Gender Information Value Date Recorded Sex Assigned at Not on file 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 Gender Identity Not on file Sexual Orientation Not on file Last Filed Vital Signs Vital Sign Reading Time Taken Comments Blood Pressure 138/72 11/06/2024 3:14 PM CDT Pulse 94 11/06/2024 3:14 PM CDT Temperature 36.3 C (97.4 F) 11/06/2024 3:14 PM CDT Respiratory Rate 17 11/06/2024 3:14 PM CDT Oxygen Saturation 97% 11/06/2024 3:14 PM CDT Inhaled Oxygen Concentration - - Weight 101.2 kg (223 lb 3.2 oz) 11/06/2024 3:14 PM CDT Height 172.7 cm (5' 8 ) 11/06/2024 3:14 PM CDT Body Mass Index 33.94 11/06/2024 3:14 PM CDT Plan of Treatment Upcoming Encounters Date Type Department Care Team (Late st Contact Info) Description 05/07/2025 1:20 PM CDT Office Visit [facility] [address] [place] [address] Flory Fierro, [address] [place] [phone] Health Maintenance Due Date Last Done Comments HEPATITIS B VACCINES (1 of 3 - 19+ 3-dose series) 1992 Preventative Visit-Managed Medicaid 1992 HPV/Cotest (21-29) 1994 CERVICAL CANCER SCREENING 2003 HPV/Cotest (30-65) 2003 PAP SMEAR 2003 BREAST CANCER SCREENING 2013 COLORECTAL SCREENING 2018 Colorectal Cancer Screening 2018 FIT-DNA Q 3 years 2018 FIT/FOBT Q 1 year 2018 Flex Sig/CT Colonography Q 5 years 2018 ZOSTER VACCINE (1 of 2) 2023 INFLUENZA VACCINE (#1) 2025 05/02/2019 COVID-19 Vaccine (2 - season) 03/17/202511/2021, 09/13/2021 Pre-Diabetes and Diabetes Screening 04/13/202504/13 DTAP/TDAP/TD VACCINES (3 - Td or Tdap) 06/22/2032, 01/15/2013 Procedures Procedure Name Priority Date/Time Associated Diagnosis Comments HEMOGLOBIN A1C Routine 04/13/2022 4:15 PM CDT Other fatigue from Last 3 Months or Most Recently Relevant to Health Maintenance Results * HEMOGLOBIN A1C (04/13/2022 4:15 PM CDT) HEMOGLOBIN A1C 5.1 <5.7 % of total Hgb [facility] Comment: For the purpose of screening for the presence of diabetes: <5.7% Consistent with the absence of diabetes 5.7-6.4% Consistent with increased risk for diabetes (prediabetes) > or =6.5% Consistent with diabetes This assay result is consistent with a decreased risk of diabetes. Currently, no consensus exists regarding use of hemoglobin A1c for diagnosis of diabetes in children. According to [place] Diabetes Association (ADA) guidelines, hemoglobin A1c <7.0% represents optimal control in non- diabetic patients. Different metrics may apply to specific patient populations. Standards of Medical Care in Diabetes(ADA). ESTIMATED AVERAGE GLUCOSE (MG/DL) 100 mg/dL [facility] ESTIMATED AVERAGE GLUCOSE (MMOL/L) 5.5 mmol/L [facility] Comment: Test Performed at: [facility] [address] [place] [address] Nael Florian D.O., MPH Blood 04/13/2022 4:15 PM CDT 04/14/2022 5:26 AM CDT Irsi Gonzales LACING OPERATOR CHEMISTRY ORDERABLES Final Result [facility] [phone] [facility] [id number] [phone] from Last 3 Months or Most Recently Relevant to Health Maintenance Insurance [email or web address] [facility] MEDICAID Care Teams Cardroom Attendant Relationship Specialty Start Date End Date Flory Fierro DO [address] [place] [phone] PCP - General Family Practice 06/17/19
--- OUTSIDE RECORDS SUMMARY | 2025-04-12 22:47 | XMS_ITS | Clinical Summary ---
Author Organization [facility] Address [address] [place] [address] Care Team Providers Care Watch Manufacturing Supervisor Name Role Phone Paola Fierrooraming Maldonado DO Primary Care Provider Allergies No known active allergies Medications gabapentin (NEURONTIN) 100 mg capsuleIndicatio ns:Chronic pain of left ankle TAKE 1 CAPSULE BY MOUTH 2 TIMES DAILY. 60 Capsule 2 11/15/2019 Active buPROPion HCL (Wellbutrin XL) 300 mg Extended Release 24 hour tabletIndication s:Episode of recurrent major depressive disorder, unspecified depression episode severity Take 1 Tablet (300 mg) by mouth daily in the morning. 30 Tablet 5 04/20/2020 Active omeprazole (PriLOSEC) 20 mg Capsule, Delayed Release(E.C.)Ind ications:Gastroe sophageal reflux disease, unspecified whether esophagitis present Take 1 Capsule (20 mg) by mouth daily. 30 Capsule 6 04/20/2020 Active Rexulti 2 mg TabletIndication s:Episode of recurrent major depressive disorder, unspecified depression episode severity TAKE 1 TABLET BY MOUTH DAILY. 90 Tablet 2 06/28/2020 Active ALPRAZolam (XANAX) 0.25 mg tabletIndication s:Generalized anxiety disorder TAKE 1 TABLET BY MOUTH NIGHTLY NEEDED FOR ANXIETY. 30 Tablet 1 08/19/2020 Active traZODone (DESYREL) 50 mg tablet TAKE 2 TABLETS BY MOUTH DAILY AT BEDTIME. 60 Tablet 5 08/18/2020 Active busPIRone (BUSPAR) 10 mg tabletIndication s:Anxiety state TAKE 2 TABLETS BY MOUTH 2 TIMES DAILY. 120 Tablet 5 08/21/2020 Active montelukast (Singulair) 10 mg tabletIndication s:Environmental allergies Take 1 Tablet (10 mg) by mouth daily at bedtime. 30 Tablet 5 10/23/2020 Active Active Problems Problem Noted Date Diagnosed Date Primary insomnia 11/19/2019 Generalized anxiety disorder 11/19/2019 Recurrent major depressive disorder, in full rem ission 11/19/2019 Immunizations Immunization Administration Dates Next Due Influenza Seasonal Unspecified Formulation IM Family History Medical History Relation Name Comments Diabetes Maternal Grandfather Diabetes Mother No Known Problems Sister 2 Relation Name Status Comments Father Other Maternal Grandfather Mother Alive Sister 1 Sister 2 Alive Social History Tobacco Use Types Packs/Day Years Used Date Smoking Tobacco: Every Day Cigarettes 1 27 Smokeless Tobacco: Never Tobacco Cessation:Ready to Q uit: No; Counseling Given: Yes Alcohol Use Standard Drinks/Week Comments Never 0 (1 standard drink = 0.6 oz pur e alcohol) Comments No Sex and Gender Information Value Date Recorded Sex Assigned at Not on file 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 Gender Identity Not on file Sexual Orientation Not on file Last Filed Vital Signs Vital Sign Reading Time Taken Comments Blood Pressure 107/81 10/23/2020 4:00 PM CDT Pulse 116 10/23/2020 4:00 PM CDT Temperature 36.8 C (98.3 F) 10/23/2020 4:00 PM CDT Respiratory Rate 18 07/22/2019 8:31 AM SENIOR 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 Oxygen Saturation 95% 10/23/2020 4:00 PM CDT Inhaled Oxygen Concentration - - Weight 94.5 kg (208 lb 6.4 oz) 10/23/2020 4:00 P M CDT Height 172.7 cm (5' 8 ) 10/23/2020 4:00 PM CDT Body Mass Index 31.69 10/23/2020 4:00 PM CDT Plan of Treatment Health Maintenance Due Date Last Done Comments Pre-Diabetes and Diabetes Screening 1973 DTAP/TDAP/TD VACCINES (1 - Tdap) 1992 HEPATITIS B VACCINES (1 of 3 - 19+ 3-dose series) 02/15 Preventative Visit-Managed Medicaid 1992 HPV/Cotest (21-29) 1994 CERVICAL CANCER SCREENING 2003 HPV/Cotest (30-65) 2003 PAP SMEAR 2003 BREAST CANCER SCREENING 2013 COLORECTAL SCREENING 2018 Colorectal Cancer Screening 2018 FIT-DNA Q 3 years 2018 FIT/FOBT Q 1 year 2018 Flex Sig/CT Colonography Q 5 years 2018 ZOSTER VACCINE (1 of 2) 2023 INFLUENZA VACCINE (#1) 2025 05/02/2019 Insurance [facility] MEDICAID Care Teams Watch Manufacturing Supervisor Relationship Specialty Start Date End Date Flory Fierro DO [address] [facility] [place] [id number] PCP - General Family Practice 06/17/19
[2025-04-12] MEDS: iohexol 350 mg/mL 500 mL Btl (per mL) IV (22:57)
[2025-04-12 23:01] LABS: Hematocrit 34.6 % (36-47); Hemoglobin 11.20 g/dL (11.27-16.99); Mean Corpuscular HGB Conc 32.4 g/dL (30-55); Mean Corpuscular Hemoglobin 30.8 pg (27-33); Mean Corpuscular Volume 95.1 fl (85-98); Nucleated Red Blood Cells % 0 %; Platelet Count 275 10^3/cmm (157-399); Red Blood Count 3.64 10^6/uL (3.85-5.65); White Blood Count 7.00 10^3/uL (3.29-11.43)
[2025-04-12 23:19] LABS: Lactic Sepsis W/Reflex 1.3 mmol/L (0.5-2.2)
[2025-04-12 23:20] LABS: Albumin Level 4.0 g/dL (3.5-5.2); Alkaline Phosphatase 76 U/L (35-105); Anion Gap 13.8 (5-19); Aspartate Amino Transferase 16 U/L (0-32); Blood Urea Nitrogen 11 mg/dL (6-20); Calcium 8.6 mg/dL (8.5-10.5); Carbon Dioxide 28 mmol/L (22-29); Chloride 102 mmol/L (98-107); Globulin 2.7 g/dL (1.3-4.6); Glucose 120 mg/dL (65-115); Magnesium 2.0 mg/dL (1.7-2.3); Osmolality Calculated 291 mOsm/kg (285-295); Potassium 3.8 mmol/L (3.5-5.1); Sodium 140 mmol/L (136-145); Total Protein 6.7 g/dL (6.6-8.7)
[2025-04-12 23:21] LABS: Alcohol Level < 10 mg/dL (0-10)
[2025-04-12 23:25] LABS: ABG PCO2 48.6 mmHg (35-45); ABG PH Result 7.36 (7.35-7.45); Arterial Blood Gas Hematocrit 30.6 % (37-47); Blood Gas Allen Test Pos; Blood Gas Operator Identificat gerca; Blood Gas Sample Site Radial, right; Blood Gas Sample Type Arterial; HCO3 ABG 27.4 mmol/L (22-26); PO2 ABG 89.6 mmHg (80.0-100.0); PO2 FiO2 Ratio Arterial Blood 426
[2025-04-12 23:30] LABS: Alanine Aminotransferase 14 U/L (0-33)
[2025-04-12 23:36] VITALS: BP 107/74; PULSE 73; RESP 16; O2SAT 99
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
[2025-04-13 01:05] LABS: Glucose Urine UA Negative (Normal); Nitrate Urine Negative (Negative)
[2025-04-13 01:10] LABS: Add Urine Microscopic? YES; PCP Screen Urine Negative (Negative)
[2025-04-13 01:49] LABS: Specific Gravity, Urine 1.093 (1.005-1.030); UA Slide Review UA Slide Review Perf
[2025-04-13 02:26] VITALS: BP 91/56; PULSE 71; RESP 14; O2SAT 99
[2025-04-13 04:00] VITALS: BP 104/65; PULSE 71; RESP 14; O2SAT 99
[2025-04-13 05:31] VITALS: BP 124/88; PULSE 71; RESP 16; O2SAT 98
[2025-04-13 06:07] VITALS: BP 124/88; PULSE 74; RESP 16; O2SAT 99
== END 2025-04-13 06:08 | disposition home or self-care (01) ==
PROVIDERS: Emergency Provider Emergency Medicine; PCP Family Medicine
DX: R41.82 Altered mental status, unspecified (principal); T50.905A Adverse effect of unspecified drugs, medicaments and biological substances, initial encounter; X58.XXXA Exposure to other specified factors, initial encounter; Z72.0 Tobacco use
CPT/HCPCS: 36415; 36600; 70450; 71260; 72125; 74177; 80053; 80306; 80307; 81001; 82550; 82803; 83605; 83735; 84100; 85025; 96374; 99285; J2312; J7030

== ENCOUNTER 2025-05-29 10:40 | Outpatient (CLI) | payer BC, MEDICAID, SELFPAY ==
--- NOTE | 2025-05-29 10:48 | MM_ITS ---
WS: [id number] BILATERAL SCREENING DIGITAL TOMOSYNTHESIS MAMMOGRAM WITH CAD HISTORY: SCREENING COMPARISON: 05/02/2018, 01/07/2016 Bilateral CC and MLO views with tomosynthesis and synthetic mammography submitted. Computer aided detection analyzed. Breast composition: There are scattered areas of fibroglandular density. No suspicious masses, microcalcifications or architectural distortion. MM/MM scr BI tomosynthesis [id number] IMPRESSION: BI-RADS: 1 - Negative. FOLLOW UP: 1 Year Follow-up
== END 2025-05-29 10:41 | disposition home or self-care (01) ==
LOC: RAD 10:42
PROVIDERS: PCP Family Medicine
DX: Z12.31 Encounter for screening mammogram for malignant neoplasm of breast (principal); R92.323 Mammographic fibroglandular density, bilateral breasts
CPT/HCPCS: 77063; 77067

== ENCOUNTER 2025-06-09 12:56 | Outpatient (CLI) | payer BC, MEDICAID, SELFPAY ==
[2025-06-09 13:51] LABS: Hematocrit 39.9 % (36-47); Hemoglobin 13.20 g/dL (11.27-16.99); Mean Corpuscular HGB Conc 33.1 g/dL (30-55); Mean Corpuscular Hemoglobin 30.5 pg (27-33); Mean Corpuscular Volume 92.1 fl (85-98); Nucleated Red Blood Cells % 0 %; Platelet Count 332 10^3/cmm (157-399); Red Blood Count 4.33 10^6/uL (3.85-5.65); White Blood Count 13.59 10^3/uL (3.29-11.43)
[2025-06-09 14:28] LABS: Alanine Aminotransferase 11 U/L (0-33); Albumin Level 4.4 g/dL (3.5-5.2); Alkaline Phosphatase 81 U/L (35-105); Anion Gap 14.4 (5-19); Aspartate Amino Transferase 14 U/L (0-32); Blood Urea Nitrogen 10 mg/dL (6-20); Calcium 9.2 mg/dL (8.5-10.5); Carbon Dioxide 28 mmol/L (22-29); Chloride 102 mmol/L (98-107); Cholesterol 164 mg/dL (0-200); Globulin 3.1 g/dL (1.3-4.6); Glucose 127 mg/dL (65-115); HDL Cholesterol 61 mg/dL (60-100); Osmolality Calculated 293 mOsm/kg (285-295); Potassium 3.4 mmol/L (3.5-5.1); Sodium 141 mmol/L (136-145); Thyroid Stimulating Hormone 0.33 uIU/mL (0.27-4.20); Total Protein 7.5 g/dL (6.6-8.7); Triglycerides 67 mg/dL (0-150)
== END 2025-06-09 12:57 | disposition home or self-care (01) ==
PROVIDERS: PCP Family Medicine
DX: R63.5 Abnormal weight gain (principal)
CPT/HCPCS: 36415; 80053; 80061; 84443; 85025